=== PATIENT | male | born 1985 | race Caucasian/White ===

== ENCOUNTER → 2021-02-01 | Outpatient (REF) | payer BC ==
[2021-02-01 16:42] LABS: BLOOD UREA NITROGEN 19 MG/DL (7-18); CARBON DIOXIDE LEVEL 29 MEQ/L (21-32); CHLORIDE LEVEL 103 MEQ/L (98-107); CREATININE FOR GFR 0.92 MG/DL (0.70-1.30); GLOMERULAR FILTRATION RATE > 60.0 (>60); GLUCOSE, FASTING 97 MG/DL (70-100); POTASSIUM SERUM 4.4 MEQ/L (3.5-5.1); SODIUM LEVEL 139 MEQ/L (136-145)
== END ==
LOC: M SFHCCLAY 10:35
PROVIDERS: ATTEND Family Medicine
DX: I11.9 Hypertensive heart disease without heart failure (principal)

== ENCOUNTER → 2021-04-30 | Outpatient (REF) | payer BC ==
[2021-04-30 17:05] LABS: BLOOD UREA NITROGEN 15 MG/DL (7-18); CALCIUM LEVEL 9.9 MG/DL (8.5-10.1); CARBON DIOXIDE LEVEL 29 MEQ/L (21-32); CHLORIDE LEVEL 100 MEQ/L (98-107); GLOMERULAR FILTRATION RATE > 60.0 (>60); GLUCOSE, FASTING 91 MG/DL (70-100); POTASSIUM SERUM 4.1 MEQ/L (3.5-5.1); SODIUM LEVEL 137 MEQ/L (136-145)
== END ==
LOC: M SFHCCLAY 12:00
PROVIDERS: ATTEND Family Medicine
DX: I11.9 Hypertensive heart disease without heart failure (principal)

== ENCOUNTER → 2021-06-10 | Outpatient (REF) | payer OTHER ==
[2021-06-11 12:06] LABS: BLOOD UREA NITROGEN 19 MG/DL (7-18); CALCIUM LEVEL 9.5 MG/DL (8.5-10.1); CARBON DIOXIDE LEVEL 30 MEQ/L (21-32); CHLORIDE LEVEL 102 MEQ/L (98-107); CREATININE FOR GFR 0.98 MG/DL (0.70-1.30); GLOMERULAR FILTRATION RATE > 60.0 (>60); GLUCOSE, FASTING 73 MG/DL (70-100); POTASSIUM SERUM 4.7 MEQ/L (3.5-5.1); SODIUM LEVEL 136 MEQ/L (136-145)
== END ==
LOC: M SFHCCLAY 15:18
PROVIDERS: ATTEND Family Medicine
DX: I11.9 Hypertensive heart disease without heart failure (principal)

== ENCOUNTER → 2021-09-13 | Outpatient (REF) | payer OTHER ==
[2021-09-13 19:28] LABS: BLOOD UREA NITROGEN 20 MG/DL (7-18); CALCIUM LEVEL 9.6 MG/DL (8.5-10.1); CARBON DIOXIDE LEVEL 29 MEQ/L (21-32); CHLORIDE LEVEL 100 MEQ/L (98-107); GLOMERULAR FILTRATION RATE > 60.0 (>60); GLUCOSE, FASTING 94 MG/DL (70-100); POTASSIUM SERUM 4.4 MEQ/L (3.5-5.1); SODIUM LEVEL 135 MEQ/L (136-145)
== END ==
LOC: M SFHCCLAY 10:37
PROVIDERS: ATTEND Family Medicine
DX: Z00.00 Encounter for general adult medical examination without abnormal findings (principal); I11.9 Hypertensive heart disease without heart failure

== ENCOUNTER → 2022-03-14 | Outpatient (REF) | payer OTHER ==
[2022-03-14 12:02] LABS: BLOOD UREA NITROGEN 20 MG/DL (7-18); CALCIUM LEVEL 10.1 MG/DL (8.5-10.1); CARBON DIOXIDE LEVEL 28 MEQ/L (21-32); CHLORIDE LEVEL 106 MEQ/L (98-107); CREATININE FOR GFR 0.83 MG/DL (0.70-1.30); GLOMERULAR FILTRATION RATE > 60.0 (>60); GLUCOSE, FASTING 112 MG/DL (70-100); POTASSIUM SERUM 4.5 MEQ/L (3.5-5.1); SODIUM LEVEL 140 MEQ/L (136-145)
== END ==
LOC: M SFHCCLAY 08:30
PROVIDERS: ATTEND Family Medicine
DX: I11.9 Hypertensive heart disease without heart failure (principal)

== ENCOUNTER → 2023-03-09 | Outpatient (CLI) | payer OTHER | LOC: M CLY 09:21 | PROVIDERS: ATTEND Nurse Practitioner Family | DX: R06.2 Wheezing (principal); J06.9 Acute upper respiratory infection, unspecified ==

== ENCOUNTER → 2025-05-02 | Outpatient (REF) | payer OTHER ==
[2025-05-02 17:20] LABS: ALT/SGPT 27 U/L (7.0-40); AST/SGOT 18 U/L (<34); CALCIUM LEVEL 9.4 MG/DL (8.5-10.1); CARBON DIOXIDE LEVEL 31 MMOL/L (20-31); CHLORIDE LEVEL 104 MMOL/L (98-107); CHOLESTEROL LEVEL 199 MG/DL (<200); CHOLESTEROL RISK RATIO 6.56 (<5); CREATININE FOR GFR 0.87 MG/DL (0.70-1.30); GLOMERULAR FILTRATION RATE > 90.0 (>60); LDL CHOLESTEROL 103.3 MG/DL (<100); NON-HDL-C 168.7 MG/DL; POTASSIUM SERUM 3.9 MMOL/L (3.5-5.1); SODIUM LEVEL 144 MMOL/L (136-145); TRIGLYCERIDES LEVEL 327 MG/DL (<150)
== END ==
LOC: M SFHCCLAY 13:19
PROVIDERS: ATTEND Nurse Practitioner Family
DX: Z00.00 Encounter for general adult medical examination without abnormal findings (principal); I10 Essential (primary) hypertension

== ENCOUNTER → 2025-05-02 | Outpatient (CLI) | payer OTHER | LOC: M CLY 13:45 | PROVIDERS: ATTEND Nurse Practitioner Family | DX: R06.2 Wheezing (principal) ==

== ENCOUNTER → 2025-06-12 | Outpatient (CLI) | payer OTHER | LOC: M SLEEP HO 11:15 | PROVIDERS: ATTEND Nurse Practitioner Family | DX: G47.33 Obstructive sleep apnea (adult) (pediatric) (principal); R06.02 Shortness of breath; R06.83 Snoring ==